=== PATIENT | female | born 1965 | race Caucasian/White ===

== ENCOUNTER 2017-10-07 19:11 | Emergency (ER) | payer BC ==
[~2017-10-07] VITALS: Ht 162.6 cm; Wt 68.0 kg
[~2017-10-07 19:11] MED LIST: ATOR10TA PO; CYCL5TAB PO; DEXT10TA23 PO; DEXT20CA7 PO; DICL100G18 TP; FOLI0.4T2 PO; GABA-585 PO; IBUP200T44 PO; LACT1CAP6 PO; LEVO25TA4 PO; METH2.5T PO; MULT-208 PO; MUPI15CR TP; NYST1000 PO; OLAN2.5T3 PO; OXYC-323 PO; SOLI5TAB2 PO; TRAM50TA PO; VENL37.5 PO; [UNRECOGNIZED DRUG - CODE] SQ
[2017-10-07] MEDS ORDERED: VALA10005 PO (20:47)
[2017-10-07] MEDS ORDERED: HYDR-971 PO (20:47)
--- NOTE | 2017-10-07 20:49 | PHYS DOC ---
General Chief Complaint: SKIN PROBLEM Stated Complaint: BUMPS ON BACK HAIR LINE Time Seen by MD: 20:46 Source: patient Exam Limitations: no limitations Problems: History of Present Illness Initial Comments 52 female to the emergency department with rash on the back of her neck. Patient states that she had some itching at the back of her neck last night, today blisters and pain at the left side in the back of her neck at the OA extending laterally. Patient is immunocompromised with methotrexate for rheumatoid arthritis among other things denies fever chills sweats or myalgias no trauma. Timing/Duration: other Severity: mild Modifying Factors: worse with movement Associated Symptoms: rash Allergies: Coded Allergies: No Known Drug Allergies (Unverified , 01/18/15) Past Medical History Medical History: arthritis (rheumatoid), other Surgical History: noncontributory Social History Smoker: non-smoker Alcohol: none Drugs: none Review of Systems Constitutional: denies chills, denies fever Respiratory: denies cough, denies shortness of breath Cardiovascular: denies chest pain, denies palpitations Gastrointestinal: denies nausea, denies vomiting Skin: see HPI Physical Exam General Appearance: WD/WN, no apparent distress Ear, Nose, Throat: hearing grossly normal, normal ENT inspection, normal pharynx Neck: non-tender, full range of motion, supple Respiratory: normal breath sounds, no respiratory distress Extremities: non-tender, normal inspection 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 Prescription: Valtrex, Nettie 5 mg quantity 20 Follow-up with your doctor in 3-5 days for recheck. Return to ED with new or changing symptoms. YEE SCHULTZ DO Oct 07, 2017 20:49
[2017-10-07 21:00] VITALS: BP 119/75
[2017-10-07] MEDS ORDERED: valACYclovir 500 MG TABLET. PO ONE (21:00)
== END 2017-10-07 21:00 | disposition home or self-care (01) ==
LOC: ER 19:11
DX: B02.9 Zoster without complications (principal); M06.9 Rheumatoid arthritis, unspecified
CPT/HCPCS: 99283